=== PATIENT | male | born 1990 | race Two or more races ===

== ENCOUNTER → 2022-10-13 13:57 | Outpatient (BNVA) | payer SELFPAY | PROVIDERS: PCP Pediatrics; Visit Provider Physician Assistant Medical | DX: Z02.79 Encounter for issue of other medical certificate (principal) ==

== ENCOUNTER 2023-03-27 09:21 | Outpatient (AMB) | payer OTHER, SELFPAY ==
--- NOTE | 2023-03-27 09:24 | MHC.PC.OV ---
Vital Signs 03/27/23 09:26 Height 5 ft 5 in Weight 155 lb BMI 25.8 BP 110/70 Blood Pressure Location Lt brachial Position Sitting Pulse 62 Pulse Source Pulse Oximeter Pulse Oximetry (%) 98 Oxygen Delivery Method Room Air Intake Visit Reasons: Tobacco Prizer/Establish Care Intake Note: Patient is a new patient here to establish care. Pt has not seen a primary care for more than 15 years. Pt requesting a PE. 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 Denies significant past medical or surgical history. Patient reports that he has had 3 syncopal episodes over the last month. Patient states that he will get an upset stomach stomach ache goose bumps on the back his neck, he will feel dizzy and then black out. Patient denies convulsions or urination on himself. Patient states that he will lose consciousness for couple of minutes and then he will start coming to. Patient states the episode has happened when he saw blood in he got queasy feeling and passed out or has occurred when he was just relaxing or happened when he was overheated. Patient presents going to chest pain randomly but not correlated with syncopal episodes. Patient denies any palpitations. Patient also reports that he does get joint pain various joints for which he takes Tylenol at times for. [facility] Family History (Updated 03/27/23 @ 09:41 by CIARAN George) Mother No problems noted. Social History (Updated 03/27/23 @ 09:42 by CIARAN George) Housing: Apartment Alcohol intake: never Patient Tobacco Use Status: Current someday Tobacco user Tobacco use type: Cigarette Cigarettes Per Day: 3 e-Cigarette/Vaping Use: Never Used Substance Use Type: Marijuana service: No Current occupational status: employed Cognitive needs: No Hearing needs: No Vision needs: No Questionnaire PHQ-9 Over the last 2 weeks, how often have you been bothered by any of the following problems? 1. Little interest or pleasure in doing things: not at all 2. Feeling down, depressed, or hopeless: not at all 3. Trouble falling or staying asleep, or sleeping too much: not at all 4. Feeling tired or having little energy: not at all 5. Poor appetite or overeating: not at all 6. Feeling bad about yourself - or that you are a failure or have let yourself or your family down: not at all 7. Trouble concentrating on things, such as reading the newspaper or watching television: not at all 8. Moving or speaking so slowly that other people could have noticed. Or the opposite - being so fidgety or restless that you have been moving around a lot more than usual: not at all 9. Thoughts that you would be better off or of hurting yourself in some way: not at all Total score: 0 Depression Screening Interpretation: Negative 79512 - PHQ-9 Billing: Yes Source: Developed by Drs. Rey Bermudez, Verenice Red, Abdullahi Luis and colleagues, with an educational tawanna from [employer]. Thrive Questionnaire Date Thrive assessed: 03/27/23 I am a: Patient What is your living situation today?: I have a steady place to live Within the past 12 months, did the food you bought not last and you didn't have the money to get more?: Never true Within the past 12 months, did you worry whether your food would run out before you got money to buy more?: Never true Do you have trouble paying for medicines?: No Do you have trouble getting transportation to medical appointments?: No Do you have trouble paying your heating and electricity bill?: No Do you have trouble taking care of your child, family member or friend?: No Do you have trouble with day-to-day activities such as bathing, preparing meals, shopping, managing finances, etc.?: No Are you currently unemployed and looking for a job?: No Are you interested in more education?: No Please select the resources that you would like help with: None Currently or been in a relationship where the following occur: no concerns reported AUDIT C Alcohol Use Questionnaire (AUDIT-C) 1. How often do you have a drink containing alcohol?: Never 3. How often do you have six or more drinks on one occasion?: Never Total Score: 0 EDVIN-7 AMB Questionnaire EDVIN-7 Date EDIVN - 7 assessed: 03/27/23 Feeling nervous, anxious, or on edge: 0 = Not at all Not being able to stop or control worryin = Not at all Worrying too much about different things: 0 = Not at all Trouble relaxin = Not at all Being so restless that it is hard to sit still: 0 = Not at all Becoming easily annoyed or irritable: 0 = Not at all Feeling afraid as if something awful might happen: 0 = Not at all Total EDVIN-7 score (0-4 normal; 5-9 mild; 10-14 moderate; 15-21 severe): 0 Source: Developed by Drs. Rey Bermudez, Verenice Red, Abdullahi Luis and colleagues, with an educational tawanna from [employer]. EDVIN-7 Assessment Billing EDVIN-7 Assessment Tool: EDVIN-7 Assessment 25350 Review of Systems Const Denies chills, Denies fatigue, Denies fever(s) and Denies poor appetite Eyes Denies no additional complaints ENT Reports Normal hearing present Card Denies chest pain, Denies syncope, Denies rapid heart rate and Denies dyspnea Resp Denies cough and Denies dyspnea GI Denies change in stool character, Denies constipation, Denies diarrhea, Denies nausea and Denies vomiting Denies dysuria, Denies urinary frequency and Denies urinary urgency Neuro Reports Normal hearing present, Denies confusion and Denies syncope Psych Denies confusion Endo Denies fatigue Physical exam (Primary Care) Vital Signs: Last Vital Signs Pulse 62 03/27/23 09:26 BP 110/70 03/27/23 09:26 Pulse Ox 98 03/27/23 09:26 Oxygen Delivery Method Room Air 03/27/23 09:26 BMI result Body Mass Index 25.8 Tobacco/Smoking Status: Tobacco use Status Tobacco use date assessed 03/27/23 03/27/23 09:34 Patient Tobacco Use Status Current someday Tobacco 03/27/23 09:42 Tobacco use type Cigarette 03/27/23 09:42 e-Cigarette/Vaping Use Never Used 03/27/23 09:42 PHQ-9: PHQ-9 Score PHQ-9: Total score 0 03/27/23 09:34 Depression Screening Interpretation: Negative Thrive Assessment: Date of Thrive Assessment Date Thrive assessed 03/27/23 03/27/23 09:34 Currently or been in a relationship where the following occur: no concerns reported Const General: No confusion Orientation/consciousness: No confusion HENMT Head: Yes normocephalic and Yes atraumatic Eyes Conjunctivae: conjunctivae normal Chest Chest palpation & inspection: normal inspection of the chest Resp Effort & Inspection: normal respiratory effort Auscultation: clear to auscultation bilaterally, no crackles, no rhonchi and no wheezes Cardio Rate: regular rate Rhythm: regular rhythm Heart sounds: S1 normal heart sound present and S2 normal heart sound present GI Inspection: Yes normal to inspection Neuro General: No confusion Cranial nerves: Yes Normal hearing present Extrem General: No edema Assessment and Plan Assessment & Plan (1) Syncope: Code(s): R55 - Syncope and collapse Plan: Complete blood work ordered, EKG, 3 day Holter monitor and head CT ordered to further evaluate random syncopal episodes. Patient advised to seek emergency medical attention if he develops any chest pain, palpitations, shortness of breath a repeat syncope for immediate evaluation. (2) Polyarthralgia: Code(s): M25.50 - Pain in unspecified joint Plan: Will try rheumatoid factor, ESR CRP MATT to further evaluate. Plan Follow-up in 1 month or sooner if needed. Orders: Orders Comprehensive [place]. Panel Fast Today R55 - Syncope and collapse Lipid Panel Today R55 - Syncope and collapse TSH reflex Free T4 Today Z13.29 - Encounter for screening for other suspected endocrine disorder Vitamin D 25-OH Total Today Z13.21 - Encounter for screening for nutritional disorder Complete Blood Count Auto Diff Today R55 - Syncope and collapse Erythrocyte Sedimentation Rate Today M25.50 - Pain in unspecified joint C Reactive Protein Today M25.50 - Pain in unspecified joint Rheumatoid Factor Today M25.50 - Pain in unspecified joint CT head/brain wo IV con Today R55 - Syncope and collapse ECG 3 day holter monitor Today R55 - Syncope and collapse ECG 12 lead EKG Today R55 - Syncope and collapse Coding Level of Care Code New Pt Level 3 (96179) Diagnoses Syncope R55 Polyarthralgia M25.50 Additional Codes EDVIN-7 Assessment Billing - EDVIN-7 Assessment Tool: EDVIN-7 Assessment 62967 ([id number])
[2023-03-27 09:26] VITALS: BP 110/70; PULSE 62; O2SAT 98; BMI 25.8
== END 2023-03-27 09:53 | disposition home or self-care (01) ==
PROVIDERS: PCP Pediatrics; Visit Provider Nurse Practitioner Family
DX: R55 Syncope and collapse (principal); M25.50 Pain in unspecified joint
CPT/HCPCS: 99203

== ENCOUNTER 2023-03-27 11:17 | Outpatient (REF) | payer OTHER, SELFPAY ==
--- NOTE | 2023-03-27 11:28 | ECG_ITS ---
Test Reason : syncope and collapse Blood Pressure : / mmHG Vent. Rate : 064 BPM Atrial Rate : 064 BPM P-R Int : 160 ms QRS Dur : 088 ms QT Int : 374 ms P-R-T Axes : 026 009 022 degrees QTc Int : 385 ms Normal sinus rhythm Normal ECG No previous ECGs available Referred By: Harriet Toribio Electronically Signed By:ESTRELLITA SNELL
[2023-03-27 11:43] LABS: MANUAL DIFF FLAG NO
[2023-03-27 12:18] LABS: Basophils Percent Auto 0.4 % (0-2); Eosinophils Absolute Auto 0.3 X10*3/uL (0.0-0.4); Eosinophils Percent Auto 2.7 % (0-4); Hematocrit 43.7 % (42.0-52.0); Hemoglobin 15.1 g/dl (14.0-18.0); Imm Gran Abs Auto 0.05 X10*3/uL (0.00-0.03); Imm Gran Pct Auto 0.5 % (0.0-0.4); Lymphocytes Absolute Auto 2.8 X10*3/uL (1.2-4.9); Lymphocytes Percent Auto 28.9 % (20-40); Mean Corpuscular HGB Conc 34.6 g/dl (31.0-36.0); Mean Corpuscular Hemoglobin 31.5 pg (27.0-33.0); Mean Corpuscular Volume 91.2 fL (80.0-98.0); Monocytes Absolute Auto 0.9 X10*3/uL (0.1-1.2); Monocytes Percent Auto 8.8 % (2-11); Neutrophils Absolute Auto 5.6 x10*3/uL (2.0-8.3); Neutrophils Percent Auto 58.7 % (45-73); Platelet Count 330 X10*3/uL (160-400); Red Blood Count 4.79 X10*6/uL (4.60-5.80); Red Cell Distribution Width 12.4 % (11.0-16.0); White Blood Count 9.6 X10*3/uL (4.8-10.8)
[2023-03-27 12:56] LABS: Erythrocyte Sedimentation Rate 7 MM/HR (0-15)
[2023-03-27 13:06] LABS: Alanine Aminotransferase 28 U/L (0-40); Albumin Level 4.6 g/dL (3.5-5.0); Alkaline Phosphatase 74 U/L (39-117); Anion Gap 15 (12-20); Aspartate Amino Transferase 20 U/L (5-37); Bilirubin Total 0.5 mg/dL (0.0-1.0); Blood Urea Nitrogen 12 mg/dL (9-16); C Reactive Protein 0.36 mg/dL (< or = 0.50); Calcium 10.3 mg/dL (8.4-10.2); Carbon Dioxide 25 mmol/L (22-29); Chloride 103 mmol/L (96-108); Cholesterol 220 mg/dL (<200); Estimated Glomerular Filt Rate > 60; Glucose Fasting 87 mg/dL (60-99); HDL Cholesterol 50 mg/dL (>40); LDL Cholesterol Calculated 115 mg/dL (<100); Potassium 4.3 mmol/L (3.3-5.1); Sodium 139 mmol/L (135-145); Total Protein 7.7 g/dL (6.5-8.0); Triglycerides 275 mg/dL (<150)
[2023-03-27 13:24] LABS: TSH reflex Free T4 0.44 uIU/mL (0.32-4.0); Vitamin D 25-OH Total 21.5 ng/mL (>30)
[2023-03-27 14:03] LABS: Rheumatoid Factor < 13.0 IU/mL (<15.0)
== END 2023-03-27 11:18 | disposition home or self-care (01) ==
LOC: HO.LAB 11:17
PROVIDERS: PCP Nurse Practitioner Family; Visit Provider Nurse Practitioner Family
DX: Z13.29 Encounter for screening for other suspected endocrine disorder (principal); Z13.21 Encounter for screening for nutritional disorder; M25.50 Pain in unspecified joint; R55 Syncope and collapse; E78.00 Pure hypercholesterolemia, unspecified
CPT/HCPCS: 36415; 80053; 80061; 82306; 84443; 85025; 85652; 86140; 86431; 93005

== ENCOUNTER → 2023-04-24 08:34 | Outpatient (REF) | payer OTHER, SELFPAY ==
--- NOTE | 2023-04-24 08:36 | HM_ITS ---
Conclusion: 1. Patient was monitored for total period of 2 days and 18 hours 2. Baseline was normal sinus rhythm with average heart of 66 beats per minute 3. No significant pauses noted 4. Very rare ectopy noted 5. No patient reported events MTDD
== END ==
LOC: HO.CARD 08:34
PROVIDERS: PCP Nurse Practitioner Family; Visit Provider Nurse Practitioner Family
DX: R55 Syncope and collapse (principal)
CPT/HCPCS: 93242

== ENCOUNTER → 2023-04-24 08:36 | Outpatient (BNV) | payer OTHER, SELFPAY | PROVIDERS: PCP Nurse Practitioner Family; Visit Provider Internal Medicine Cardiovascular Disease | DX: R55 Syncope and collapse (principal) | CPT/HCPCS: 93244 ==

== ENCOUNTER 2023-05-01 08:27 | Outpatient (AMB) | payer OTHER, SELFPAY ==
[2023-05-01 08:39] VITALS: BP 118/62; PULSE 74; O2SAT 98; BMI 25.0
--- NOTE | 2023-05-01 08:39 | MHC.PC.OV ---
Vital Signs 05/01/23 08:39 Height 5 ft 5 in Weight 150 lb BMI 25.0 BP 118/62 Blood Pressure Location Lt brachial Position Sitting Pulse 74 Pulse Source Pulse Oximeter Pulse Oximetry (%) 98 Oxygen Delivery Method Room Air Intake Visit Reasons: Syncope Follow up Allergies No Known Allergies Allergy (Verified 05/01/23 08:40) Tobacco use date assessed: 03/27/23 Dental Screening Dental Screen Date: 05/01/23 Did you have a dental visit in the last 12 months?: Yes Did you have a dental problem in the last 6 months where you did not have access to dental care?: No Was dental information given to patient?: Patient has dentist HPI HPI Comments History of Present Illness Details 33-year-old male new patient presents today for a follow up visit. Past medical history significant for hypercholesteremia and syncopal episode. Last office visit: Patient reports that he has had 3 syncopal episodes over the last month. Patient states that he will get an upset stomach stomach ache goose bumps on the back his neck, he will feel dizzy and then black out. Patient denies convulsions or urination on himself. Patient states that he will lose consciousness for couple of minutes and then he will start coming to. Patient states the episode has happened when he saw blood in he got queasy feeling and passed out or has occurred when he was just relaxing or happened when he was overheated. Patient presents going to chest pain randomly but not correlated with syncopal episodes. Holter monitor was completed which was unremarkable Conclusion: 1. Patient was monitored for total period of 2 days and 18 hours 2. Baseline was normal sinus rhythm with average heart of 66 beats per minute 3. No significant pauses noted 4. Very rare ectopy noted 5. No patient reported events Patient denies any recurrent syncopal episodes. Denies chest pain, palpitations, shortness of breath. Discussed with patient further that head CT was denied. Patient reports that he is worried about his head and would like further imaging. Patient denies any headaches, blurred vision and seizure activity. Patient would like to be referred to Neurology for further evaluation. Referral entered as requested by patient. [facility] Family History (Updated 05/01/23 @ 08:41 by Mirella Melgoza CMA) Mother No problems noted. Social History (Updated 03/27/23 @ 09:42 by ANGLE George Housing: Apartment Alcohol intake: never Patient Tobacco Use Status: Current someday Tobacco user Tobacco use type: Cigarette Cigarettes Per Day: 3 e-Cigarette/Vaping Use: Never Used Substance Use Type: Marijuana service: No Current occupational status: employed Cognitive needs: No Hearing needs: No Vision needs: No Questionnaire PHQ-9 Over the last 2 weeks, how often have you been bothered by any of the following problems? 1. Little interest or pleasure in doing things: not at all 2. Feeling down, depressed, or hopeless: not at all 3. Trouble falling or staying asleep, or sleeping too much: not at all 4. Feeling tired or having little energy: not at all 5. Poor appetite or overeating: not at all 6. Feeling bad about yourself - or that you are a failure or have let yourself or your family down: not at all 7. Trouble concentrating on things, such as reading the newspaper or watching television: not at all 8. Moving or speaking so slowly that other people could have noticed. Or the opposite - being so fidgety or restless that you have been moving around a lot more than usual: not at all 9. Thoughts that you would be better off or of hurting yourself in some way: not at all Total score: 0 Depression Screening Interpretation: Negative Depression Screening Done: Yes 23026 - PHQ-9 Billing: Yes Source: Developed by Drs. Rey Bermudez, Abdullahi Bhatia and colleagues, with an educational tawanna from [employer]. Thrive Questionnaire Date Thrive assessed: 03/27/23 AUDIT C Alcohol Use Questionnaire (AUDIT-C) 1. How often do you have a drink containing alcohol?: Never 3. How often do you have six or more drinks on one occasion?: Never Total Score: 0 EDVIN-7 AMB Questionnaire EDVIN-7 Date EDVIN - 7 assessed: 03/27/23 Source: Developed by Drs. Rey Berumdez, Abdullahi Bhatia and colleagues, with an educational tawanna from [employer]. Review of Systems Const Denies chills, Denies fatigue, Denies fever(s) and Denies poor appetite Eyes Denies no additional complaints ENT Reports Normal hearing present Card Denies chest pain, Denies syncope, Denies rapid heart rate and Denies dyspnea Resp Denies cough and Denies dyspnea GI Denies change in stool character, Denies constipation, Denies diarrhea, Denies nausea and Denies vomiting Denies dysuria, Denies urinary frequency and Denies urinary urgency Neuro Reports Normal hearing present, Denies confusion and Denies syncope Psych Denies confusion Endo Denies fatigue Physical exam (Primary Care) Vital Signs: Last Vital Signs Pulse 74 05/01/23 08:39 BP 118/62 05/01/23 08:39 Pulse Ox 98 05/01/23 08:39 Oxygen Delivery Method Room Air 05/01/23 08:39 BMI result Body Mass Index 25.0 Tobacco/Smoking Status: Tobacco use Status Tobacco use date assessed 03/27/23 05/01/23 08:43 Patient Tobacco Use Status Current someday Tobacco 05/01/23 08:43 Tobacco use type Cigarette 05/01/23 08:43 e-Cigarette/Vaping Use Never Used 05/01/23 08:43 PHQ-9: PHQ-9 Score PHQ-9: Total score 0 05/01/23 08:49 Depression Screening Interpretation: Negative Thrive Assessment: Date of Thrive Assessment Date Thrive assessed 03/27/23 05/01/23 08:43 Const General: No confusion Orientation/consciousness: No confusion HENMT Head: Yes normocephalic and Yes atraumatic Eyes Conjunctivae: conjunctivae normal Chest Chest palpation & inspection: normal inspection of the chest Resp Effort & Inspection: normal respiratory effort Auscultation: clear to auscultation bilaterally, no crackles, no rhonchi and no wheezes Cardio Rate: regular rate Rhythm: regular rhythm Heart sounds: S1 normal heart sound present and S2 normal heart sound present GI Inspection: Yes normal to inspection Neuro General: No confusion Cranial nerves: Yes Normal hearing present Extrem General: No edema Office Procedures Flu Questionnaire Does the patient have a severe egg allergy?: No Does the patient have severe life threatening allergies?: No Does the patient have a fever or illness today?: No Has the patient ever had Guillain-M[place]icot Syndrome?: No Has the patient ever had any past reaction to a flu shot?: No Immunizations flu vacc [id number] 6mos up(PF) 60 mcg(15 mcgx4)/0.5 mL IM syringe Performing Provider: CIARAN George [place] [facility] [facility] [place] [facility] Documented (not given) by: Mirella Melgoza CMA on 05/01/23 08:45 Reason Not Given: Patient Refused Assessment and Plan Assessment & Plan (1) Syncope: Code(s): R55 - Syncope and collapse Plan: Patient requesting referral to Neurology for further evaluation as he is concerned about his head. Referral entered to Neurology. Holter monitor unremarkable, patient denies chest pain, palpitations, shortness of breath. Signs and symptoms reviewed with patient when to seek emergency medical attention. (2) Hypercholesteremia: Code(s): E78.00 - Pure hypercholesterolemia, unspecified Plan: Avoid fried foods, chicken skin, eggs, butter,margarine, pastries and?? red meat. Repeat fasting lab work in 3 months. (3) Hypercalcemia: Code(s): E83.52 - Hypercalcemia Plan: Calcium level 10.3 patient was advised to refrain from drinking Gatorade and have blood work repeated, however I do not see the results of this. Patient reminded to get repeat calcium level completed. Plan Keep scheduled physical exam in July. Orders: Orders Influenza [id number] Immunization Today Z23 - Encounter for immunization Referrals Neurology Referral R55 - Syncope and collapse Coding Level of Care Code Est Pt Level 3 (72457) Diagnoses Syncope R55 Hypercholesteremia E78.00 Hypercalcemia E83.52
== END 2023-05-01 09:09 | disposition home or self-care (01) ==
PROVIDERS: PCP Nurse Practitioner Family; Visit Provider Nurse Practitioner Family
DX: R55 Syncope and collapse (principal); E78.00 Pure hypercholesterolemia, unspecified; E83.52 Hypercalcemia
CPT/HCPCS: 99213

== ENCOUNTER 2023-07-14 09:42 | Outpatient (REF) | payer OTHER, SELFPAY | END 2023-07-14 09:43 | disposition home or self-care (01) | LOC: HO.XRAY 09:42 | PROVIDERS: Visit Provider Hospitalist | DX: M25.551 Pain in right hip (principal) | CPT/HCPCS: 73502 ==